=== PATIENT | male | born 1970 | race Two or more races ===

== ENCOUNTER 2021-11-05 09:00 | Outpatient (CLI) | payer OTHER | END 2021-11-05 23:59 | disposition home or self-care (01) | LOC: LAB 09:00 | PROVIDERS: ATTEND Specialist | DX: Z01.812 Encounter for preprocedural laboratory examination (principal); Z20.822 Contact with and (suspected) exposure to COVID-19 | CPT/HCPCS: C9803; U0003 ==

== ENCOUNTER 2021-11-11 07:03 | Day surgery (SDC) | payer OTHER ==
[~2021-11-11] VITALS: Ht 167.6 cm; Wt 105.4 kg
--- NOTE | 2021-11-11 07:30 | NUR ---
RECEIVED PATIENT FROM HOME AT 0720 AM. PATIENT ALERT AND ORIENTED TIMES 4. TAJIK AND PORTUGUESE SPEAKING. NO PAIN NOTED. VITAL SIGNS WITHIN NORMAL RANGES. NO RESPIRATORY DISTRESS NOTED. ALL BELONGINGS RECORDED, PATIENT SIGNED. IV ACCESS LEFT AC # 20 INSERTED BY MARLENA , MRSA SWAB DONE BY MARLENA. WILL CONTINUE TO MONITOR AND MAKE HIM READY FOR SURGERY.
[2021-11-11] MEDS ORDERED: AMLO-213 PO (08:44)
[2021-11-11] MEDS ORDERED: LISI20TA30 PO (08:44)
[2021-11-11 10:23] LABS: BASOPHILS % (AUTO) 0.3 % (0.0-2.0); EOSINOPHILS % (AUTO) 1.8 % (0.0-6.0); HEMATOCRIT 43 % (39-51); HEMOGLOBIN 14.3 g/dL (13.5-17.5); LYMPHOCYTES # (AUTO) 1.9 K/uL (0.8-4.8); LYMPHOCYTES % (AUTO) 41.9 % (20.0-44.0); MEAN CORPUSCULAR HGB CONC 34 g/dl (31.0-36.0); MEAN CORPUSCULAR VOLUME 90 fL (80-96); MONOCYTES # (AUTO) 0.5 K/uL (0.1-1.30); MONOCYTES % (AUTO) 11.3 % (2.0-12.0); NEUTROPHILS # (AUTO) 2.1 K/uL (1.8-8.9); NEUTROPHILS % (AUTO) 44.7 % (43.0-81.0); PLATELET COUNT (AUTO) 191 K/uL (150-450); RED BLOOD CELL COUNT(AUTO) 4.72 MIL/uL (4.5-6.0); WHITE BLOOD COUNT (AUTO) 4.6 K/uL (4.3-11.0)
[2021-11-11] MEDS ORDERED: GLYCOPYRROLATE 0.2 MG/ML VIAL ONE (10:32)
[2021-11-11] MEDS ORDERED: ROCURONIUM BROMIDE 50 MG/5 ML ONE (10:32)
[2021-11-11] MEDS ORDERED: DEXAMETHASONE SOD PHOSPHATE 4 MG/ML VIAL ONE (10:32)
[2021-11-11] MEDS ORDERED: FENTANYL PF 250MCG/5ML AMPUL ONE (10:32)
[2021-11-11] MEDS ORDERED: EPINEPHRINE (1:1000) 1 MG/ML AMPUL ONE (11:20)
[2021-11-11] MEDS ORDERED: BUPIVACAINE 0.5 % PF 150 MG/30 ML VIAL ONE (11:21)
[2021-11-11] MEDS ORDERED: HYDROMORPHONE INJ 2 MG/ML DISP.SYRIN ONE (11:48)
[2021-11-11] MEDS ORDERED: FENTANYL PF 100MCG/2ML AMPUL ONE (12:43)
[2021-11-11] MEDS ORDERED: HYDROCODONE/APAP 5/325MG TABLET PO PRN ×2 (13:00)
[2021-11-11] MEDS ORDERED: HYDROMORPHONE 1 MG/1 ML DISP.SYRIN IV PRN (13:00)
--- NOTE | 2021-11-11 13:15 | NUR ---
RN NOTES [facility] CALLED AND GAVE REPORT AT 1315.
--- NOTE | 2021-11-11 13:30 | NUR ---
RN NOTES PATIENT CAME BACK FROM SURGERY AT 1325 PM VIA GURNEY. [facility] OR NURSE WITH PATIENT. PATIENT AWAKE .ALERT AND ORIENTED TIMES 3. AT BEDSIDE. COMPLAINS OF 9 PAIN OF THE RIGHT SHOULDER. IV DILAUDID GIVEN. ALL NEDS ATTENDED. VITAL SIGNS WITHIN NORMAL RANGES. NO SOB , NO DISTRESS NOTED. ALL NEEDS ATTENDED. WILL CONTINUE TO MONITOR.
[2021-11-11 16:04] VITALS: BP 130/81
--- NOTE | 2021-11-11 19:00 | NUR ---
CEMENT FINISHER NOTES DISCHARGE PATIENT IN STABLE CONDITION. VITAL SIGNS WITHIN NORMAL RANGES. PATIENT THE RESEARCHER OF THE INSTRUCTIONS VERBALIZED UNDERSTANDING. IV ACCESS REMOVED. COVERED WITH DRY DRESSING. NO BLEEDING NOTED. ALL BELONGINGS ACCOUNTED AND SIGNED FOR. ARM BAND REMOVED. ALL THE DISCHARGE INSTRUCTIONS EXPLAIND TO THE PATIENT. VERBALIZED UNDERSTANDING. WHEELED THE PATIENT TO THE PARKING AT 1900. PATIENT LEFT UNIT IN STABLE CONDITION. MD AND CHARGE NURSE AWARE OF THE DISCHARGE.
== END 2021-11-11 18:00 | disposition home or self-care (01) ==
LOC: DS 07:03 → MED 07:07 → UNDOADMIN 07:07 → DS 18:00 → UNDODISIN 18:45
PROVIDERS: ATTEND Specialist
DX: M75.41 Impingement syndrome of right shoulder (principal); G47.33 Obstructive sleep apnea (adult) (pediatric); I10 Essential (primary) hypertension; E66.01 Morbid (severe) obesity due to excess calories
CPT/HCPCS: 29806; 29826; 29828; 36415; 85025; 87081; A4217; A4565; C1713 ×2; J0171; J0330; J0360; J0690; J1100 ×2; J1170 ×2; J2405; J3010 ×2; J3490 ×4; J7030; G0378